=== PATIENT | female | born 1995 | race Caucasian/White ===

== ENCOUNTER → 2018-08-04 | Outpatient (CLI) | payer OTHER ==
--- NOTE | 2018-08-04 10:04 | RAD ---
EXAM: Abdomen sonogram. HISTORY: Pain. TECHNIQUE: Sonographic imaging of the abdomen was performed. COMPARISON: None. FINDINGS: The liver is normal in size. No focal hepatic lesion is seen. There is cholelithiasis. The common bile duct is normal in caliber. The kidneys are unremarkable. The pancreas, spleen, aorta and inferior vena cava are unremarkable. IMPRESSION: 1. Cholelithiasis. 2. Otherwise, unremarkable abdomen sonogram. Electronically signed by: Yareli Kaur MD (08/04/2018 10:01 AM) [place] [id number]
== END | disposition home or self-care (01) ==
LOC: US 08:48
PROVIDERS: ATTEND Physician Assistant
DX: K80.20 Calculus of gallbladder without cholecystitis without obstruction (principal)
CPT/HCPCS: 76700